=== PATIENT | female | born 1965 | race Caucasian/White ===

== ENCOUNTER 2018-03-03 01:15 | Emergency (ER) | payer OTHER ==
[2018-03-03] MEDS ORDERED: Lidocaine 1% (PF) 30 ML VIAL ONE (02:58)
[2018-03-03] MEDS ORDERED: Metoclopramide HCl 10 MG/2 ML VIAL ONE (03:15)
[2018-03-03 04:26] LABS: Color Of CSF Supernatant COLORLESS (Colorless); Tube # 3; Unspun CSF Color COLORLESS (Colorless)
[2018-03-03 04:39] LABS: CSF, Glucose 59 mg/dl (40-70); CSF, Protein 28 mg/dL (15-40)
[2018-03-03 05:04] LABS: CSF Source CSF; Clarity Clear (Clear); Tube # 1
[2018-03-03 05:05] LABS: CSF Source CSF; Clarity Clear (Clear); RBC Count - Manual 9 /cumm (None Seen); Tube # 4; WBC/NonHematics Count - Manual 3 /cumm (0-5)
[2018-03-03 05:09] LABS: RBC Count - Manual 0 /cumm (None Seen); WBC/NonHematics Count - Manual 0 /cumm (0-5)
== END 2018-03-03 05:32 | disposition home or self-care (01) ==
LOC: ERS 01:15
DX: R51 Headache (principal); K21.9 Gastro-esophageal reflux disease without esophagitis
CPT/HCPCS: 62270; 82945; 84157; 87070; 87205; 89051; 96365; J2001; J2765